=== PATIENT | male | born 2000 | race Caucasian/White ===

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

== ENCOUNTER → 2024-03-12 | Outpatient (CLI) | payer BC, OTHER ==
--- NOTE | 2024-03-14 16:44 | MR ---
EXAMINATION TYPE: MR knee LT wo con DATE OF EXAM: 03/12/2024 8:19 PM COMPARISON: None. CLINICAL INDICATION: Male, 23 years old with history of M23.92 UNSPECIFED INTERNAL DEREANGEMENT OF LE FT KNEE, inner left knee pain since august 2023 IV Contrast: cc (None if empty) TECHNIQUE: Multiplanar, multisequence imaging of the knee is performed without IV contrast. FINDINGS: There is no bone contusion or fracture. There is a small joint effusion. There is a 13 mm cystic structure in the posterior knee at the level of the distal femoral metaphysis . Uncertain whether this represents a vascular structure or ganglion cyst. Ultrasound might be useful for further evaluation. There is a large horizontal tear of the posterior horn and body of the media l meniscus. There are 2 apparent meniscal cysts including a 6.6 mm cyst 4.2 mm cyst. There is no late ral meniscal tear. There is a 13 x 4 mm ganglion cyst of the medial collateral ligament. The cruciate ligaments and late ral collateral ligaments are intact. The articular cartilages are well preserved. The quadriceps and patellar tendon are intact and in normal. IMPRESSION: 1. Large horizontal tear of the medial meniscus with meniscal cyst as above. 2. Ganglion cyst medial collateral ligament. 3. Fluid-filled mass posterior to the distal femoral metaphysis as described above. The findings coul d represent a ganglion cyst. The possibility of a vascular lesion is not excluded and ultrasound migh t be useful for further evaluation. 4. Small joint effusion. [facility], , 03/14/2024 4:42 PM
== END | disposition home or self-care (01) ==
LOC: RADMRIMAIN 19:40
PROVIDERS: ATTEND Emergency Medicine
DX: S83.242A Other tear of medial meniscus, current injury, left knee, initial encounter (principal); M23.92 Unspecified internal derangement of left knee; M23.004 Cystic meniscus, unspecified medial meniscus, left knee; M67.462 Ganglion, left knee; M25.462 Effusion, left knee